=== PATIENT | male | born 1980 | race Caucasian/White ===

== ENCOUNTER 2018-09-12 20:01 | Emergency (ER) | payer SELFPAY ==
--- NOTE | 2018-09-12 20:14 | ED Physician Documentation ---
PD HPI SKIN - Stated complaint Stated Complaint: LUMP/RED PUSS ON RT ARM - History obtained from History obtained from: Patient - History of Present Illness Timing - onset: How many days ago (few) Timing - details: Gradual onset, Still present Location: RUE (initilly on right wrist, but then to other forearm and toward forearm) Quality / character: Painful, Discolored (red), Swelling, Draining. No: Itchy Review of Systems Constitutional: denies: Fever, Chills, Myalgias Cardiac: denies: Chest pain / pressure, Palpitations Respiratory: denies: Dyspnea, Cough Neurologic: denies: Generalized weakness, Focal weakness, Numbness PD PAST MEDICAL HISTORY - Past Medical History Cardiovascular: None Respiratory: None Neuro: None Musculoskeletal: None Derm: None - Present Medications Home Medications: Ambulatory Orders Medication Instructions Recorded Confirmed Doxycycline Hyclate 100 mg PO BID #20 capsule 09/12/18 Mupirocin 1 applic TP TID #15 g 09/12/18 - Allergies Allergies/Adverse Reactions: Allergies Allergy/AdvReac Type Severity Reaction Status Date / Time No Known Drug Allergies Allergy Verified 09/12/18 20:15 PD ED PE NORMAL - Vitals Vital signs reviewed: Yes - General General: Alert and oriented X 3, No acute distress, Well developed/nourished - Cardiac Cardiac: RRR, No murmur - Respiratory Respiratory: Clear bilaterally - Derm Derm: Normal color, Warm and dry - Extremities Extremities: Other (right forearm with area of induration, swelling, with the central part showing small amount of purulent drainage. US bedside did not see any i) Results - Vitals Vitals: Oxygen O2 Source Room air PD MEDICAL DECISION MAKING - ED course Complexity details: considered differential (it was draining on its own, and bedside U/S did not show any notabe fuid pocket (4 mm).), d/w patient Departure - Departure Disposition: 01 Home, Self Care Clinical Impression: Abscess of forearm, left Condition: Stable Record reviewed to determine appropriate education?: Yes Instructions: ED Staph Infec Abx Tx Only Prescriptions: Doxycycline Hyclate 100 mg PO BID #20 capsule Mupirocin 1 applic TP TID #15 g Comments: Continue warm soaks and some ointment to the area to promote drainage. There is minimal retained fluid in the abscess at this time based on the ultrasound. It does seem to be draining reasonably well. However there is significant infection in the tissue around it with the redness and lymphatic red line. We will treat this with antibiotics orally. Recheck if not improving over the next several days and return sooner if worsening. Discharge Date/Time: 09/12/18 20:50
[2018-09-12] MEDS ORDERED: DOXYCYCLINE 100 MG TABLET PO STA (20:32)
[2018-09-12 20:50] VITALS: BP 138/92
== END 2018-09-12 20:50 | disposition home or self-care (01) ==
LOC: ED 20:01
DX: L02.413 Cutaneous abscess of right upper limb (principal)
CPT/HCPCS: 99283; A9270